=== PATIENT | female | born 1970 ===

== ENCOUNTER 2020-10-26 02:13 | Outpatient (CLI) | payer OTHER, SELFPAY ==
[2020-10-26 11:28] LABS: Source Nasal/Nares
[2020-10-26 13:58] LABS: COVID-19 PCR Negative (Negative)
== END 2020-10-26 02:14 | disposition home or self-care (01) ==
LOC: LBO 02:14
DX: Z20.822 Contact with and (suspected) exposure to COVID-19 (principal); Z01.818 Encounter for other preprocedural examination
CPT/HCPCS: 87635